=== PATIENT | male | born 1950 | race Hispanic/Latino ===

== ENCOUNTER 2024-11-04 15:12 | Emergency (ER) | payer BC, MEDICARE ==
[~2024-11-04] VITALS: Ht 177.8 cm; Wt 127.0 kg
--- NOTE | 2024-11-04 15:19 | ERN ---
ED Note History of Present Illness Stated Complaint: URINARY RETENTION Chief Complaint: Urinary Retention Time Seen by MD: 15:15 Dictation: PATIENT IS A 73-YEAR-OLD MALE COMING IN TODAY WITH COMPLAINTS OF NO URINATION AND RETENTION OF URINE SINCE 0100 THIS MORNING. NO FEVER NO CHILLS NO NAUSEA VOMITING. HE STATES HE FEELS VERY ANXIOUS. NO NAUSEA VOMITING NO FLANK PAIN. STATES HE HAS A HISTORY OF PROSTATE ENLARGEMENT AND THIS IS HER TO HIM SEVERAL YEARS AGO. Past Medical History Past Medical History: No Pertinent History Additional Past Medical Hx: denies pmhx Surgical History: None Surgical History Other: denies sx RN Note Reviewed/Agreed w/PFSH: Yes Review of System Dictation CONSTITUTIONAL: NEGATIVE EXCEPT FOR HPI HEAD/FACE: NEGATIVE EXCEPT FOR HPI EENT: NEGATIVE EXCEPT FOR HPI RESPIRATORY: NEGATIVE EXCEPT FOR HPI GASTROINTESTINAL/ABDOMINAL: NEGATIVE EXCEPT FOR HPI GENITOURINARY: NEGATIVE EXCEPT FOR HPI ACUTE URINARY RETENTION DISTENDED BLADDER MUSCULOSKELETAL: NEGATIVE EXCEPT FOR HPI INTEGUMENTARY: NEGATIVE EXCEPT FOR HPI NEUROLOGICAL/PSYCH: NEGATIVE EXCEPT FOR HPI HEMATOLOGIC/LYMPHATIC: NEGATIVE EXCEPT FOR HPI ALL SYSTEMS NEGATIVE, EXCEPT NOTED ABOVE. 13 POINT REVIEW OF SYSTEMS ASSESSED AND ALL NEGATIVE EXCEPT FOR ABOVE. Initial Vital Sign VS Vital Signs Date Time Temp Pulse Resp B/P (MAP) Pulse Ox O2 Delivery O2 Flow Rate FiO2 14/25 15:14 99.0 106 20 178/110 95 Room Air 0 Physical Exam Dictation VITAL SIGNS REVIEWED GENERAL APPEARANCE: ALERT, ORIENTED X 3, SEVERE ACUTE DISTRESS, WELL DEVELOPED, NOURISHED. OBESE HEAD AND FACE: NON-TRAUMATIC. EYES: PERRL, PINK CONJUNCTIVAS, EYELID NO TRAUMA, ANTERIOR CHAMBER WITH ARCUS SENILIS. EARS: PINNAS INTACT AND NO SIGNS OF TRAUMA OR ERYTHEMA EAR CANALS CLEAR AND NO DISCHARGE TM NO ERYTHEMA NOSE: NO DISCHARGE, NO BLEEDING. OROPHARYNX: MOUTH NORMAL, TONGUE PINK, PHARYNX CLEAR,NO ERYTHEMA, TONSILS NO EXUDATES, NO ABSCESSES NOTED, MUCOUS MEMB HAYDEN MOIST NECK: SUPPLE, NON-TENDER, NO THYROMEGALY, NO MASSES, NO JVD, NO BRUITS BREAST:DEFERRED CHEST:NO TENDERNESS, NO CREPITUS, NO PARADOXICAL MOVEMENT, NO RETRACTIONS LUNGS:CLEAR, WELL-VENTILATED, SYMMETRIC, NO RALES, NO WHEEZING, NO RHONCHI, NO S TRIDOR, GOOD BREATH SOUNDS BILATERALLY HEART: TACHYCARDIA, NO MURMUR, NO GALLOPS VASCULAR: NO PERIPHERAL EDEMA, ABDOMEN: SOFT, POSITIVE BOWEL SOUNDS, NONDISTENDED, NO GUARDING, NONTENDER, NO REBOUND, NO MASSES NO HEPATOMEGALY, NO SPLENOMEGALY, NO FRIED'S SIGN, NO HERNIAS. RECTAL: DEFERRED GENITAL: DEFERRED BLADDER DISTENDED FOR FINGERBREADTHS ABOVE SYMPHYSIS PUBIS NEUROLOGICAL: NORMAL SPEECH, MOTOR FUNCTION INTACT, SENSORY FUNCTION INTACT MUSCULOSKELETAL: NECK NONTENDER, FULL RANGE OF MOTION, BACK NONTENDER, FULL RANGE OF MOTION, EXTREMITIES: NONTENDER, FULL RANGE OF MOTION SKIN: COLOR PINK, DRY, NO TURGOR, NO RASH, NO LACERATIONS, NO ABRASIONS, NO CONTUSIONS. LYMPHATIC: DEFERRED Results (Laboratory/Radiology) Labs Reviewed?: Yes ED Course ED Course Orders Procedure Category Date Status Time Nurse Driven Browning JAZMIN 11/04/24 In Process Removal Pro 15:17 Urinalysis Profile LAB 11/04/24 Logged Catherized 15:17 Tamsulosin Hcl PHA 11/04/24 Verified (Flomax) 15:30 Levofloxacin 500mg PHA 11/04/24 Verified Tab (Levaquin 500mg T 15:30 Vital Signs Date Time Temp Pulse Resp B/P (MAP) Pulse Ox O2 Delivery O2 Flow Rate FiO2 11/04/24 15:14 99.0 106 20 178/110 95 Room Air 0 1532/PATIENT MARKEDLY MORE COMFORTABLE NOW THAT HE HAS BEEN TREATED WITH A BROWNING CATHETER. WE WILL START HIM ON FLOMAX AND LEVAQUIN HE WILL BE REFERRED [facility] Medical Decision Making MDM MEDICAL DECISION-MAKING WAS BASED ON IMMEDIATE BROWNING CATHETER PLACEMENT FOR URINARY RETENTION AND BLADDER DISTENTION 700 CC CLEAR CORIN URINE RETURNED, SPECIMEN TO LAB. LEG BAG PROVIDED PATIENT INITIATED WITH FLOMAX AND LEVAQUIN AND REFERRED TO UROLOGY NEXT WEEK. ALL QUESTIONS Procedure Procedure Dictation: 1522/PROCEDURE EXPLAINED TO PATIENT HE AGREED TO PROCEED SIXTEEN [place] BROWNING CATHETER PLACED ASEPTICALLY BY MENDING CARRIER PATIENT HAD APPROXIMATELY 700 CC OF CLEAR CORIN URINE RETURNED BLADDER NO LONGER PALPABLE PATIENT TOLERATED WELL URINE TO LAB FOR ANALYSIS DX & DISP Disposition: Discharge Departure Impression: Primary Impression: Urinary retention due to benign prostatic hyperplasia Condition: Stable Scripts Levofloxacin (Levofloxacin) 500 Mg Tablet 1 TAB PO DAILY for 10 Days, #10 TAB 0 Refills Prov: CLEVELAND RUSSELL SENIOR CONTROLS TECHNICIAN 11/04/24 Tamsulosin HCl (Flomax) 0.4 Mg Cap.er.24h 0.4 MG PO DAILY for 30 Days, #30 CAPSULE.DR Prov: CLEVELAND RUSSELL SENIOR CONTROLS TECHNICIAN 11/04/24 Additional Instructions: Follow-up with primary care provider in 1 to 2 days. Take medications as directed here in the emergency room. Okay to continue home medications unless otherwise discussed during your visit in the emergency room today. Return to your nearest emergency room if symptoms worsen or if there is no improvement. Call 911 if you need immediate assistance. Take Tylenol or Motrin [id number] as needed and if no contraindications are present. Increase oral hydration. A wound culture or urine culture was ordered here in the emergency room department please follow-up with primary care provider and advise them to get repeat ports from our facility. If you had any Mukesh wrap/splints that were applied here, please do not remove them until you see your primary care or specialty. Take medications as directed. Increase your water intake. , follow up with urologist next week, call for an appointment. Referrals: SELF,REFERRAL (PCP) LUIS ALBERTO SCHULTZ MD Time of Disposition: 15:36 I have reviewed the case, and I agree with, Diagnosis and Plan CLEVELAND RUSSELL NP Nov 04, 2024 15:19
[2024-11-04] MEDS ORDERED: tamSULOsin HCL 0.4 MG CAP.ER.24H PO ONE (15:30)
[2024-11-04] MEDS ORDERED: levoFLOXacin 500 MG TABLET PO SCH (15:30)
[2024-11-04 15:37] LABS: APPEARANCE,URINE CLEAR (CLEAR); BILIRUBIN,URINE NEGATIVE (NEGATIVE); COLOR,URINE YELLOW (YELLOW); GLUCOSE, URINE (UA) NEGATIVE (NEGATIVE); KETONES,URINE NEGATIVE (NEGATIVE); LEUKOCYTE ESTERASE ,URINE NEGATIVE Leu/uL (NEGATIVE); NITRATE,URINE NEGATIVE (NEGATIVE); OCCULT BLOOD,URINE SMALL (NEGATIVE); PH,URINE 5.5 (5.0-8.0); PROTEIN,URINE NEGATIVE (NEGATIVE)
[2024-11-04] MEDS ORDERED: TAMS-55 PO (15:37)
[2024-11-04] MEDS ORDERED: LEVO-70 PO (15:37)
[2024-11-04 15:42] LABS: ADD UA MICROSCOPIC YES
[2024-11-04 15:43] LABS: MUCUS,URINE RARE LPF (None Seen); WBC,URINE 0-1 /HPF (0-1)
[2024-11-04 16:15] VITALS: BP 136/87; PULSE 87; RESP 18; TEMP 98.5; O2SAT 96
== END 2024-11-04 16:25 | disposition home or self-care (01) ==
LOC: EDH 15:12
DX: N40.1 Benign prostatic hyperplasia with lower urinary tract symptoms (principal)
CPT/HCPCS: 51702; 81001; 99283

== ENCOUNTER 2024-12-05 17:57 | Emergency (ER) | payer MEDICARE, BC ==
[~2024-12-05] VITALS: Ht 180.3 cm; Wt 124.7 kg
[~2024-12-05 17:57] MED LIST: LEVO-70 PO; TAMS-55 PO
--- NOTE | 2024-12-05 19:25 | ERN ---
General Chief Complaint: Urinary Catheter Problems Stated Complaint: URINE BAG REPLACEMENT Time Seen by MD: 18:37 Time Seen by Midlevel: 18:37 Source: patient History of Present Illness Initial Comments 74-year-old male presents to the emergency department requesting [place]lando leg bag to be replaced due to leaking. Patient states [place] cath was placed due to urinary retention. Patient has a follow up appointment with urologist next week. Denies further associated symptoms. PMHx prostatitis Home Meds Active Scripts Levofloxacin (Levofloxacin) 500 Mg Tablet, 1 TAB PO DAILY for 10 Days, #10 TAB 0 Refills Prov:CLEVELAND RUSSELL NP 11/04/24 Tamsulosin HCl (Flomax) 0.4 Mg Cap.er.24h, 0.4 MG PO DAILY for 30 Days, #30 CAPSULE.DR Prov:CLEVELAND RUSSELL SCHOOL PSYCHOLOGIST 11/04/24 Past Medical History Past Medical History: Prostatitis, Other Medical History Other: denies pmhx Past Surgical History: None Surgical History Other: denies sx ROS Dictation Constitutional: Negative for fever,chills, and weight loss Eyes: Negative for injury, pain,redness, and discharge ENT: Negative for injury,pain or swelling Cardiovascular: Negative for chest pain, palpitations, and edema Respiratory: Negative for shortness of breath, cough, and wheezing, Abdomen/GI: Negative for abdominal pain, nausea, vomiting, diarrhea, and constipation Back: Negative for injury and pain : Negative for painful urination, bleeding or discharge MS/Extremity: Negative for injury and deformity Skin: Negative for rash, and discoloration Neuro: Negative for headache, weakness, numbness, tingling, and seizure Psych: Negative for suicide ideation, homicidal ideation, and hallucinations Physical Exam Physical Exam Dictation General: awake, alert, no acute distress Head/Face: Normocephalic, atraumatic Eyes: PERRL, EOMI, normal conjunctiva Neck: Supple, normal range of motion Cardiovascular: RRR, normal S1/S2 Respiratory: CTAB, no respiratory distress Skin: Warm, dry, normal turgor, no rash MS/Extremity: Pulses equal, no cyanosis, neurovascular intact, FROM Neuro: COAx4, GCS 15, strength 5/5, CN 2-12 intact, normal cerebellar exam, normal gait Psych: Normal behavior, mood, and affect normal MDM MDM: Differential diagnosis: Orlando bag leaking/damage Rationale: 74-year-old male presents to the emergency department requesting orlando leg bag to be replaced due to leaking. Patient states [place] cath was placed due to urinary retention. Patient has a follow up appointment with urologist next week. Denies further associated symptoms. PMHx prostatitis Orlando cath bag replaced. Advised to follow up with PCP. Return to the emergency department if any further symptoms. Patient verbalized understanding. Patient stable for discharge. There are no social concerns with this patient. I independently interpreted the test that were performed, results were reviewed by me and considered findings on radiology if ordered. Medical management and examination interpretation discussions were had by me with other qualified healthcare professionals as indicated for the patient's care. ED Course Orders Procedure Category Date Status Time *Nursing CPOE 12/05/24 Transmitted Communication: 18:51 Vital Signs Date Time Temp Pulse Resp B/P (MAP) Pulse Ox O2 Delivery O2 Flow Rate FiO2 12/05/24 21:03 98.2 74 18 145/85 98 Room Air* 0 21 12/05/24 18:51 98.2 74 18 145/85 98 DX & DISP Disposition: Discharge Departure Impression: Primary Impression: Orlando catheter problem Condition: Stable Additional Instructions: Discharge home. Rest. Follow up with primary care DrNghia in 24 hours. Return to the ER for any acute changes or worsening symptoms. If any medications were prescribed take as directed. Okay to continue home medications unless otherwise discussed during your visit in the emergency room today. Patient was also advised to follow-up with primary care physician in 1 to 2 days for continued monitoring. Referrals: DEREK RAMON MD (PCP) I performed the substantive portion of the visit. I have reviewed and personally made and approve the management plan that is documented in the notes by myself or the RANDALL. I acknowledge full responsibility for the patient's management plan. ELAN WALKER Dec 05, 2024 19:25
[2024-12-05 21:03] VITALS: BP 145/85; PULSE 74; RESP 18; TEMP 98.2; O2SAT 98
--- NOTE | 2024-12-05 21:07 | NUR ---
LEG BAG CHANGED, PT TOLERATED WELL
== END 2024-12-05 21:10 | disposition home or self-care (01) ==
LOC: EDH 17:57
DX: T83.038A Leakage of other urinary catheter, initial encounter (principal); Y82.8 Other medical devices associated with adverse incidents; Y92.89 Other specified places as the place of occurrence of the external cause
CPT/HCPCS: 51702; 99284